=== PATIENT | female | born 1975 | race Hispanic/Latino ===

== ENCOUNTER 2023-08-26 16:58 | Emergency (ER) | payer BC, SELFPAY ==
[2023-08-26 17:04] VITALS: BP 149/96
[2023-08-26 18:46] VITALS: BP 137/74
[2023-08-26] MEDS: MOTRIN 400 MG PO (18:55)
[2023-08-26 19:07] LABS: % Basophils 0.3 % (0-2); % Eosinophils 1.4 % (0-6); % Immature Granulocytes 0.1 % (0-0.5); % Lymphocytes 28.7 % (20.5-51.1); % Monocytes 7.9 % (1.7-9.3); % Neutrophils 61.6 % (42.2-75.2); Absolute Eosinophils 0.1 10^3/uL (0-0.7); Absolute Lymphocytes 2.1 10^3/uL (1.2-3.4); Absolute Monocytes 0.6 10^3/uL (0.1-0.6); Absolute Neutrophils 4.4 10^3/uL (1.4-6.5); Hematocrit 37.4 % (37.0-47.0); Hemoglobin 13.5 g/dL (12.0-16.0); Mean Corp Hgb Conc. 36.1 g/dL (33.0-37.0); Mean Corpuscular Hgb 30.5 pg (27.0-31.0); Mean Corpuscular Volume 84.6 fL (81.0-99.0); Mean Platelet Volume 11.1 fL (7.4-10.4); Nucleated Red Blood Cells % 0 %; Platelet Count 198 10^3/uL (130-400); Red Blood Cell Count 4.42 10^6/uL (4.20-5.40); Red Cell Dist. Width 12.4 % (11.5-14.5); White Blood Cell Count 7.2 10^3/uL (4.8-10.8)
[2023-08-26 19:22] LABS: D-Dimer 0.31 ug/mlFEU (0.00-0.50)
[2023-08-26 19:25] LABS: ALT (SGPT) 23 U/L (0-35); AST (SGOT) 29 U/L (14-36); Albumin 4.3 g/dl (3.5-5.0); Alkaline Phosphatase 62 U/L (38-126); Blood Urea Nitrogen 20 mg/dl (7-17); Calcium 9.6 mg/dl (8.4-10.2); Carbon Dioxide 23 mmol/L (22-30); Chloride 108 mmol/L (98-107); Glucose 120 mg/dl (70-99); Potassium 4.1 mmol/L (3.5-5.1); Sodium 140 mmol/L (135-145); Total Protein 6.9 g/dl (6.3-8.2); eGFR > 60.00
[2023-08-26 19:33] LABS: Troponin I < 0.012 ng/ml
--- NOTE | 2023-08-26 19:56 | ED.GENMED ---
History of Present Illness
General
Chief Complaint: Musculo-Skeletal Complaint
Source: patient and family
Exam Limitations: none
Time Seen by Provider: 08/26/23 18:13
Nursing documentation reviewed up to this point in time: agreed with
Travel History
Have you had any contact with someone who has COVID-19?: No
Do you have any symptoms of coronavirus? Fever > 100 degrees, chills, cough, shortness of breath, sore throat, loss of taste or smell, muscle aches, or headache?: No
History of Present Illness
History of Present Illness:
48-year-old female with a past medical history of hypertension, diabetes who presents to the emergency room with her family for evaluation of right scapular pain as well as right upper arm/axillary pain. Patient reports that she has had pain in the
right medial scapula for the past few months on and off she says. She describes it as a sharp pain that is worse with movement. She says that over the past week it seems to have moved to the right arm she is now in pain in the right upper arm as
well as radiation towards the axilla/right breast. She says pain is much worse when she moves her right arm particularly when she tries to extend it in front of or to the side of her. She decided to come to the emergency room to be evaluated for
symptoms. She has not had any chest pain or shortness of breath. She denies any swelling in the arm. She denies any injury or trauma. 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 She has not taken any medication for her
symptoms.
Past History
Past History
ED Past Medical History: HTN
ED Past Surgical History:
Social History
Tobacco: Non-smoker
Review of Systems
Review of Systems
All Other Systems: ROS reviewed and negative except as documented in HPI and ROS
Constitutional: Denies fever
Respiratory: Denies cough or trouble breathing
Cardiac: Denies chest pain or palpitations
ABD/GI: Denies abdominal pain, nausea or vomiting
: Denies flank pain
Musculoskeletal: Reports other (Arm pain, scapular pain); Denies neck pain or back pain
Neurological: Denies dizzy, headache, weakness or numbness
Phy Exam
Physical Exam
Physical Exam:
General: Awake, alert, oriented x3; no acute distress
Head: Normocephalic, atraumatic
Eyes: Conjunctiva normal
Throat: Airway intact, handling secretions
Neck: Trachea midline, no cervical spine tenderness
Lungs: Clear to auscultation bilaterally, no wheezing, rales, rhonchi
Heart: Regular rate and rhythm, no murmurs, gallops, or rubs; she has no reproducible rib tenderness or breast tenderness
Abd: Soft, non distended, nontender
Neuro: Cranial nerves grossly intact, speech fluid; motor and sensory function intact radial, median, ulnar nerve distribution right upper extremity
Skin: no rash�specifically no rash in the arm, scapula, right axilla or chest wall
Extremities: No edema in extremities, equal pulses in all extremities specifically strong right radial pulse; she has tenderness along the medial margin of her right scapula; she has no tenderness along the right clavicle or around the humeral head
on the right; she has some mild medial tenderness along the proximal biceps as well as some tenderness in the axillary region but there is no palpable axillary adenopathy or mass; she has pain with flexion, abduction and external rotation of the
right shoulder but no significant pain with extension or adduction, internal rotation at the shoulder; no pain with range of motion of the right elbow
Scores
Heart Failure Risk
Heart Failure Risk Score: Not Applicable
Heart Score for Chest Pain Patients
STEMI patient?: Not applicable
Withdrawal Assessment of Alcohol
Withdrawal Assessment Completed?: Not applicable
Course
Orders/Labs/Results
Orders:
Orders
08/26/23 17:08
CR Shoulder, Trauma - Right Urgent
Comment:
Reason For Exam: pain
08/26/23 18:49
Electrocardiogram (*1) Urgent
Reason for Study: Chest Pain
EKG- Treatment ONCE
CR Chest - 2 Views Urgent
Comment:
Reason For Exam: right chest wall pain/scapular pain
08/26/23 18:50
Ibuprofen [Motrin] 400 mg PO NOW STA
08/26/23 19:01
Complete Blood Count/With Diff Urgent
Comprehensive Metabolic Panel Urgent
D-Dimer Urgent
Troponin I Urgent
Abnormal Lab Results
08/26/23
19:01
MPV 11.1 H fL
(7.4-10.4)
Chloride 108 H mmol/L
(98-107)
BUN 20 H mg/dl
(7-17)
Glucose 120 H mg/dl
(70-99)
08/26/23 19:01
08/26/23 19:01
Vital Signs
Initial and Last Documented VS:
Initial Vital Signs
Temp Pulse Resp BP Pulse Ox
36.8 C 100 18 149/96 97
08/26/23 17:04 08/26/23 17:04 08/26/23 17:04 08/26/23 17:04 08/26/23 17:04
Last Documented Vital Signs
Temp Pulse Resp BP Pulse Ox
36.8 C 87 20 137/74 98
08/26/23 17:04 08/26/23 18:46 08/26/23 18:46 08/26/23 18:46 08/26/23 18:46
MDM/Problems Addressed
Differential Diagnosis Includes:
Scapular pain: Myofascial strain, pinched nerve/radiculopathy; less likely PE or pneumothorax, pneumonia, GERD
Upper arm pain: Muscle strain, radiculopathy, fracture, dislocation, rotator cuff injury, tendinitis, bursitis
MDM/Problems Addressed:
48-year-old female presents to the emergency room for evaluation of scapular pain for the past few months now increasing pain in the upper arm on the right for the past week. Symptoms are worse with movement and reproducible to the touch. She was
hypertensive and tachycardic in triage normalized by my assessment. Vital signs otherwise normal. Physical exam as above. In an abundance of caution given the scapular pain and her history of obesity will check D-dimer to evaluate for possibility
of PE although very low clinical suspicion. She does have some cardiac risk factors as well and with some radiation towards the axilla/chest wall will check EKG and troponin level. Will send basic labs alongside. Will check an x-ray of the chest
and shoulder. Will treat with Motrin. Reassess after the above. Suspect that these are likely muscular pains.
Labs reviewed: CBC and CMP unremarkable. Troponin undetectable. D-dimer negative. Chest x-ray unremarkable. Shoulder x-ray shows arthritis at the AC joint but no other acute abnormalities�she has no tenderness along the AC joint. Pathology
suspect likely muscular pains; advised rest, ice, NSAIDs and will have patient follow-up with primary care physician and orthopedist as an outpatient. Patient comfortable with this plan. Spoke about return precautions and all questions answered.
Acute Exacerbation and/or Progression of Chronic Illness:
Acutely hypertensive resolved without intervention continue to monitor but no additional antihypertensive indicated at present
Acute Exacerbation and/or Progression of Chronic Illness: HTN
*Radiology
Radiology exam reviewed: preliminary read by ED provider and radiology read reviewed
*Pulse Oximetry
Patient hypoxic: no
*EKG
Interpreted by ED Provider?: Yes
Heart Rate: 70
Rate: normal
Rhythm: sinus
[place]: normal axis
Interval: normal interval
QRS Pattern: normal QRS
Ischemia: no ischemia
*Critical Care Note
Total Time (30-74mins, 75-104mins- exclusive of procedures): Not Applicable
Data Reviewed
Source: patient and spouse
ED Attending Note
-
Portions of this chart may have been created with voice recognition software.� Occasional wrong word or��sound alike� substitutions may have occurred due to the inherent limitations of voice recognition software.
Discharge Plan
Departure
Prescriptions:
No Action
olmesartan 20 MG tablet
20 mg PO DAILY Qty: 14 0RF
Referrals:
Lucina Ravi CRNP [Family Provider] -
Interventions
Interventions:
*Risk Screen - Suicide Last Done: 08/26/23 17:04
*Neglect/Abuse Screening Last Done: 08/26/23 17:04
*ED COVID-19 Vaccine History Last Done: 08/26/23 17:04
ED-Musculoskeletal Assessment Last Done: 08/26/23 18:47
Discharge Date and Time
Print Language: HAITIAN
[2023-08-26 21:28] VITALS: BP 141/72
== END 2023-08-26 21:30 | disposition home or self-care (01) ==
LOC: EMR 16:58
PROVIDERS: EMERGENCY PHYSICIAN Emergency Medicine; FAMILY PHYSICIAN Nurse Practitioner Adult Health
DX: M25.511 Pain in right shoulder (principal); M79.621 Pain in right upper arm; I10 Essential (primary) hypertension; E11.9 Type 2 diabetes mellitus without complications
CPT/HCPCS: 99285; 71046; 73030; 80053; 84484; 85025; 85379; 93005

== ENCOUNTER 2023-11-03 16:41 | Emergency (ER) | payer BC, SELFPAY ==
[2023-11-03 16:46] VITALS: BP 160/80
[2023-11-03 17:22] LABS: % Basophils 0.3 % (0-2); % Eosinophils 1.5 % (0-6); % Immature Granulocytes 0.3 % (0-0.5); % Lymphocytes 33.3 % (20.5-51.1); % Monocytes 7.6 % (1.7-9.3); Absolute Eosinophils 0.1 10^3/uL (0-0.7); Absolute Monocytes 0.5 10^3/uL (0.1-0.6); Absolute Neutrophils 3.5 10^3/uL (1.4-6.5); Hematocrit 40.4 % (37.0-47.0); Hemoglobin 14.1 g/dL (12.0-16.0); Mean Corp Hgb Conc. 34.9 g/dL (33.0-37.0); Mean Corpuscular Hgb 30.7 pg (27.0-31.0); Nucleated Red Blood Cells % 0 %; Platelet Count 197 10^3/uL (130-400); Red Blood Cell Count 4.59 10^6/uL (4.20-5.40); Red Cell Dist. Width 12.7 % (11.5-14.5); White Blood Cell Count 6.1 10^3/uL (4.8-10.8)
[2023-11-03 17:36] LABS: ALT (SGPT) 21 U/L (0-35); AST (SGOT) 24 U/L (14-36); Albumin 4.7 g/dl (3.5-5.0); Alkaline Phosphatase 85 U/L (38-126); Blood Urea Nitrogen 18 mg/dl (7-17); Calcium 9.5 mg/dl (8.4-10.2); Carbon Dioxide 25 mmol/L (22-30); Chloride 106 mmol/L (98-107); Glucose 84 mg/dl (70-99); Potassium 4.4 mmol/L (3.5-5.1); Sodium 139 mmol/L (135-145); Total Protein 7.2 g/dl (6.3-8.2); eGFR > 60.00
[2023-11-03 17:37] LABS: PT 15.1 Sec (11.4-14.6)
[2023-11-03 17:47] LABS: Troponin I < 0.012 ng/ml
[2023-11-03 17:56] VITALS: BP 121/67
[2023-11-03 17:57] VITALS: BMI 48.2
[2023-11-03 18:00] VITALS: BP 121/74
--- NOTE | 2023-11-03 18:23 | ED.GENMED ---
History of Present Illness
General
Chief Complaint: Breast Problem
Source: patient
Exam Limitations: none
Time Seen by Provider: 11/03/23 18:01
History of Present Illness
History of Present Illness:
This is a 48 year old female that comes in with c/o right breast pain that goes into her back. States that this has been on and off for a few months. States that the pain has gotten worse in the past 2-3 week. States that she has pain in the breast
and also in the back. States that she has felt SOB, nauseated yesterday, bloated and a little dizzy. Denies any fever, chills, chest pain, abd pain, vomiting, diarrhea, headache, urinary burning.
Past History
Past History
ED Past Medical History: HTN, NIDDM and Other (Headache)
ED Past Surgical History:
Social History
Tobacco: Non-smoker
Alcohol: Occasional
Personal:
Living: with family
Review of Systems
Review of Systems
All Other Systems: ROS reviewed and negative except as documented in HPI and ROS
Constitutional: Reports no symptoms; Denies fever or chills
EENT: Reports no symptoms
Respiratory: Reports trouble breathing; Denies cough
Cardiac: Reports no symptoms; Denies chest pain
ABD/GI: Reports nausea (Yesterday); Denies abdominal pain, vomiting or diarrhea
: Reports no symptoms; Denies dysuria, frequency or urgency
Musculoskeletal: Reports back pain (right upper back pain, Breast pain)
Skin: Reports no symptoms
Neurological: Reports dizzy (Little); Denies headache
Psychiatric: Reports no symptoms
Phy Exam
General Physical Exam
General Presentation: well appearing and no apparent distress
General age: appears stated age
General Skin: warm and dry
General Habitus: normal
General Mental: alert
General Hydration: appears well hydrated
ENT Exam
ENT Exam: TM's normal, pharynx normal and neck supple
Eye Exam
Eye Exam: EOMI
Cardiovascular Exam
Cardiovascular Exam: regular rate/rhythm, no edema, no murmur and normal peripheral pulses
Pulmonary Exam
Pulmonary Exam: lungs clear, no respiratory distress, no rales, chest non tender, no crackles, no rhonchi, no wheezing and no cough
Musculoskeletal Exam
Musculoskeletal Exam: full ROM and back pain (right lateral upper musculoskeletal pain with palpation. )
Skin Exam
Skin Exam: normal color, warm/dry, no rash, no petechia and other (Negative for tenderness or redness of the right breast. Patient points to the discomfort at 9pm. Negative for any lumps palpable. )
Psychiatric Exam
Psychiatric Exam: normal mood/affect
Course
Orders/Labs/Results
Orders:
Orders
11/03/23 16:44
EKG [Electrocardiogram (*1)] Urgent
Reason for Study: Other
Other Reason for Exam: Right breast pain shooting through back
11/03/23 16:45
EKG- Treatment ONCE
11/03/23 17:16
Complete Blood Count/With Diff Urgent
Comprehensive Metabolic Panel Urgent
D-Dimer Urgent
Comment: ADD ON
Prothrombin Time Urgent
Troponin I Urgent
11/03/23 18:22
CR Chest - 2 Views Urgent
Comment:
Reason For Exam: Right sided chest, back pain
11/03/23 18:33
Add On- LAB Urgent
Tests Added?: D-Dimer
Abnormal Lab Results
11/03/23
17:16
MPV 11.0 H fL
(7.4-10.4)
PT 15.1 H Sec
(11.4-14.6)
BUN 18 H mg/dl
(7-17)
11/03/23 17:16
11/03/23 17:16
PT 15.1 with INR 1.20, Troponin <0.012, Very slightly dehydrated. D-dimer <0.27
Vital Signs
Initial and Last Documented VS:
Initial Vital Signs
Temp Pulse Resp BP Pulse Ox
97.9 F 71 20 160/80 97
11/03/23 16:46 11/03/23 16:46 11/03/23 16:46 11/03/23 16:46 11/03/23 16:46
Last Documented Vital Signs
Temp Pulse Resp BP Pulse Ox
97.9 F 58 13 121/74 98
11/03/23 16:46 11/03/23 18:30 11/03/23 18:30 11/03/23 18:00 11/03/23 18:37
MDM/Problems Addressed
Differential Diagnosis Includes:
Musculoskeletal pain,
MDM/Problems Addressed:
This is a 48 year old female that comes in with c/o right breast pain around 9pm and upper back pain.
will check labs and get chest X-ray. explained to patient that she will need to see her family doctor and have them order a Mammogram. Patient also tender with palpation over the trapezius muscle on the right sided. This is musculoskeletal in
nature.
back into see patient. Explained that her D-dimer is normal along with her chest X-ray. Patient to follow up with the PCP on The as scheduled. Encouraged patient to have a Mammogram. Her back pain is most likely musculoskeletal. Patient can use
heat or ice to the back. Tylenol or Ibuprofen for pain. Return with any concerns.
Chronic conditions affecting care:
NA
Acute Exacerbation and/or Progression of Chronic Illness:
NA
*Radiology
Radiology exam reviewed: preliminary read by ED provider (Chest- negative for active disease)
*Pulse Oximetry
Patient hypoxic: no
*EKG
Interpreted by ED Provider?: Yes
Heart Rate: 66
Rate: normal
Rhythm: sinus
[place]: normal axis
Interval: normal interval
QRS Pattern: normal QRS
Ischemia: no ischemia
*Quality Control Tester Interpretation
Rate: normal
Heart Rate: 69
Rhythm: sinus
*Critical Care Note
Total Time (30-74mins, 75-104mins- exclusive of procedures): Not Applicable
ED Attending Note
-
Portions of this chart may have been created with voice recognition software.� Occasional wrong word or��sound alike� substitutions may have occurred due to the inherent limitations of voice recognition software.
Discharge Plan
Departure
Patient Disposition: Home (Routine Discharge)
Date of Disposition: 11/03/23
Time of Disposition: 19:39
Patient with high blood pressure during this ER visit?: No
Condition: Good
Covid-19: Not Applicable
Discharge Problem:
Musculoskeletal back pain, Breast pain, right
Instructions: Common breast problems, Musculoskeletal Pain
Prescriptions:
No Action
olmesartan 20 MG tablet
20 mg PO DAILY Qty: 14 0RF
ibuprofen 600 mg tablet
600 mg PO TID PRN (Reason: Pain) Qty: 30 0RF
Referrals:
Lucina Ravi CRNP [Family Provider] - 11/14/23
Activity Restrictions/Additional Instructions:
As discussed, your blood work is normal. Your D-dimer is negative and your chest x-ray is normal. Please follow up with the family doctor for further evaluation. Please have them order a Mammogram. You back pain is most likely musculoskeletal as the
pain can be reproduced with palpation. You may use heat or ice to this area. Tylenol or Ibuprofen for pain. IF YOU HAVE ANY OTHER CONCERNS PLEASE RETURN TO THE EMERGENCY ROOM
Interventions
Interventions:
*Risk Screen - Suicide Last Done: 11/03/23 16:46
*General Assessment Last Done: 11/03/23 16:46
*Neglect/Abuse Screening Last Done: 11/03/23 16:46
*ED COVID-19 Vaccine History Last Done: 11/03/23 16:46
ED-Skin Assessment Last Done: 11/03/23 17:57
Discharge Date and Time
Print Language: INDONESIAN
[2023-11-03 19:12] VITALS: BP 100/68
[2023-11-03 19:18] LABS: D-Dimer < 0.27 ug/mlFEU (0.00-0.50)
== END 2023-11-03 20:18 | disposition home or self-care (01) ==
LOC: EMR 16:41
PROVIDERS: Emergency Medicine; EMERGENCY PHYSICIAN Emergency Medicine; FAMILY PHYSICIAN Nurse Practitioner Adult Health
DX: N64.4 Mastodynia (principal); M54.9 Dorsalgia, unspecified; I10 Essential (primary) hypertension; E11.9 Type 2 diabetes mellitus without complications
CPT/HCPCS: 99283; 71046; 80053; 84484; 85025; 85379; 85610; 93005

== ENCOUNTER → 2024-05-30 15:32 | Outpatient (REF) | payer BC, SELFPAY | LOC: HWWDC 15:32 | PROVIDERS: ATTENDING PHYSICIAN Nurse Practitioner Adult Health; REFERRING PHYSICIAN Nurse Practitioner Adult Health | DX: Z12.31 Encounter for screening mammogram for malignant neoplasm of breast (principal) | CPT/HCPCS: 77063; 77067 ==